=== PATIENT | female | born 1965 | race Caucasian/White ===

== ENCOUNTER → 2024-11-25 | Outpatient (REF) | payer BC, SELFPAY ==
[2024-11-25 08:12] LABS: Cholesterol 85 mg/dL (<=200); Low Density Lipoprotein Calc. 31 mg/dL; Triglycerides 138 mg/dL; Very Low Density Lipoprotein 28 mg/dL (5-40); Vitamin D,25 Hydroxy 14.6 ng/mL (30-100); cholesterol:hdl ratio screen 3.24
== END ==
LOC: OLS.ACW200 05:00
PROVIDERS: Visit Provider Family Medicine
DX: M54.59 Other low back pain (principal); E11.9 Type 2 diabetes mellitus without complications; F11.20 Opioid dependence, uncomplicated; F33.0 Major depressive disorder, recurrent, mild; F41.9 Anxiety disorder, unspecified
CPT/HCPCS: 36415; 80061; 82306; 83036; 84443